=== PATIENT | female | born 1995 | race Caucasian/White ===

== ENCOUNTER 2016-12-25 19:16 | Emergency (ER) | payer OTHER ==
[2016-12-25 20:25] VITALS: BP 101/64
--- NOTE | 2016-12-25 21:39 | UC ---
FLU HPI - HPI Summary HPI Summary: AT 7AM BEGAN HAVING BODY ACHES, FEVER, CHILLS, CONGESTION. MOTHER SICK (AFTER GOING HOME FOR [facility]) NO RASHES. NO VOMITING OR DIARRHEA - History of Current Complaint Chief Complaint: UCRespiratory Stated Complaint: ACHES, SORE THROAT, AND COUGH Time Seen by Provider: 12/25/16 20:40 Hx Obtained From: Patient Hx Last Menstrual Period: 11/23/16 Onset/Duration: Sudden Onset, Lasting Hours, Still Present Severity Currently: Moderate Severity Initially: Moderate Associated Signs & Symptoms: Positive: Fever, F/C, Myalgia, Sore Throat, Nasal Congestion Related Hx: Possible Flu/Infectious Exposure - Risk Factors Influenza Risk Factors: Negative - Allergy/Home Medications Allergies/Adverse Reactions: Allergies Allergy/AdvReac Type Severity Reaction Status Date / Time No Known Allergies Allergy Verified 12/25/16 20:25 Home Medications: Home Medications Citalopram TAB* [Celexa TAB*] 12/25/16 [History] Gabapentin CAP(*) [Neurontin 300 CAP(*)] 12/25/16 [History Confirmed 12/25/16] PMH/Surg Hx/FS Hx/Imm Hx Previously Healthy: Yes Neurological History Of: Reports: Migraine - Surgical History Surgical History: Yes Surgery Procedure, Year, and Place: TONSILLECTOMY, jaw - Family History Known Family History: Positive: None - reviewed & noncontributory, Other - MOTHER SICK WITH SIMILAR SYMPTOMS Negative: Respiratory Disease - Social History Occupation: Student Lives: With Family Alcohol Use: Occasionally Substance Use Type: None Smoking Status (MU): Never Smoked Tobacco Review of Systems Constitutional: Fever, Chills Skin: Negative Eyes: Negative ENT: Sore Throat, Nasal Discharge Respiratory: Negative Cardiovascular: Negative Gastrointestinal: Negative Genitourinary: Negative Motor: Negative Neurovascular: Negative Musculoskeletal: Myalgia Neurological: Negative Psychological: Negative All Other Systems Reviewed And Are Negative: Yes Physical Exam Triage Information Reviewed: Yes Appearance: No Pain Distress, Well-Nourished, Ill-Appearing Vital Signs: Initial Vital Signs Temp 99.5 F 12/25/16 20:21 Pulse 71 12/25/16 20:21 Resp 12 12/25/16 20:21 BP 101/64 12/25/16 20:21 Pulse Ox 100 12/25/16 20:21 Vital Signs Reviewed: Yes Eye Exam: Normal Eyes: Positive: Conjunctiva Clear ENT: Positive: Normal ENT inspection, Hearing grossly normal, Pharynx normal, Nasal congestion, TMs normal. Negative: Pharyngeal erythema, Tonsillar swelling , Tonsillar exudate Dental Exam: Normal Neck exam: Normal Neck: Positive: Supple, Nontender, No Lymphadenopathy Respiratory Exam: Normal Respiratory: Positive: Chest non-tender, Lungs clear, Normal breath sounds, No respiratory distress, No accessory muscle use Cardiovascular Exam: Normal Cardiovascular: Positive: RRR, No Murmur, Pulses Normal Abdominal Exam: Normal Abdomen Description: Positive: Nontender, No Organomegaly. Negative: Splenomegaly Musculoskeletal Exam: Normal Musculoskeletal: Positive: Strength Intact, ROM Intact, No Edema Neurological Exam: Normal Psychological Exam: Normal Psychological: Positive: Normal Response To Family Skin Exam: Normal Flu Course/Dx - Differential Dx/Diagnosis Differential Diagnosis/HQI/PQRI: Influenza, RSV, Upper Respiratory Infection Provider Diagnoses: INFLUENZA Discharge - Discharge Plan Condition: Stable Disposition: HOME Prescriptions: Oseltamivir CAP* [Tamiflu CAP*] 75 mg PO BID #10 cap Patient Education Materials: Influenza (ED) Referrals: [facility] MING Murillo [Primary Care Provider] -
[2016-12-25] MEDS ORDERED: Oseltamivir CAP* 75 MG PO ONE (21:42)
== END 2016-12-25 21:52 | disposition home or self-care (01) ==
LOC: UCEAST 19:16
DX: J11.1 Influenza due to unidentified influenza virus with other respiratory manifestations (principal)
CPT/HCPCS: 87502; 99212; A9270-GY; G0463

== ENCOUNTER 2018-01-11 20:29 | Emergency (ER) | payer OTHER ==
[2018-01-11 21:25] VITALS: BP 89/60
--- NOTE | 2018-01-11 22:08 | UC ---
Head Injury HPI - HPI Summary HPI Summary: 22 yo WF presents s/p fall [address] and hit her head onto sidewalk w/o LOC, but its been 3 days and c/o mental fogginess, unsteadiness on her feet , MINOR, nausea. Reports pain is more severe than previous post-concussions HAs - History Of Current Complaint Chief Complaint: UCHeadInjury Stated Complaint: HEADACHES,NAUSEA FROM HEAD INJURY Time Seen by Provider: 01/11/18 21:50 Hx Obtained From: Patient Hx Last Menstrual Period: 12/04/17 Onset/Duration: Sudden Onset, Lasting Days Severity Currently: Moderate Severity Initially: Moderate Pain Intensity: 7 - Allergies/Home Medications Allergies/Adverse Reactions: Allergies Allergy/AdvReac Type Severity Reaction Status Date / Time No Known Allergies Allergy Verified 01/11/18 21:16 Home Medications: Home Medications Penicillin VK TAB* [Penicillin VK 250 mg Tab*] 250 mg PO QID 01/11/18 [History Confirmed 01/11/18] Sertraline* [Zoloft*] 50 mg PO DAILY 01/11/18 [History Confirmed 01/11/18] lamoTRIgine TAB(*) [Lamictal TAB(*)] 150 mg PO DAILY 01/11/18 [History Confirmed 01/11/18] tiaGABine TAB(*) [Gabitril(*)] 4 mg PO BEDTIME 01/11/18 [History Confirmed 01/11] tiaGABine TAB(*) [Gabitril(*)] 8 mg PO QAM 01/11/18 [History Confirmed 01/11/18] PMH/Surg Hx/FS Hx/Imm Hx - Additional Past Medical History Additional PMH: concussions - Surgical History Surgical History: Yes Surgery Procedure, Year, and Place: TONSILLECTOMY, jaw reconstruction 2016 - Family History Known Family History: Positive: None - reviewed & noncontributory, Other - MOTHER SICK WITH SIMILAR SYMPTOMS Negative: Respiratory Disease - Social History Alcohol Use: Weekly Substance Use Type: None Smoking Status (MU): Never Smoked Tobacco Review of Systems Constitutional: Negative Skin: Negative Eyes: Negative ENT: Negative Respiratory: Negative Cardiovascular: Negative Gastrointestinal: Negative Genitourinary: Negative Motor: Negative Neurovascular: Other - see HPI Musculoskeletal: Negative Neurological: Negative Psychological: Negative All Other Systems Reviewed And Are Negative: Yes Physical Exam Triage Information Reviewed: Yes Appearance: No Pain Distress Vital Signs: Initial Vital Signs Temp 37.1 C 01/11/18 21:19 Pulse 66 01/11/18 21:19 Resp 79 01/11/18 21:19 BP 89/60 01/11/18 21:19 Pulse Ox 100 01/11/18 21:19 Eye Exam: Normal ENT Exam: Normal Dental Exam: Normal Neck exam: Normal Neck: Positive: 1 Respiratory Exam: Normal Cardiovascular Exam: Normal Abdominal Exam: Normal Musculoskeletal Exam: Normal Neurological: Positive: Other: - CN 2-12 grossly intact, gait WNL, no hemiparesis or paresthesias Psychological Exam: Normal Skin Exam: Normal Skin: Positive: Other - right parietal scalp contusion 2x2cm, no open wounds Head Injury Course/Dx - Course Course Of Treatment: post-concussion MINOR, mental fogginess and nausea is worsening, will need CT brain to r/o cerebral edema or slow ICH to explain progressive worsening of sx. Advised to go to ER now for CT brain w/o contrast - Differential Dx/Diagnosis Differential Diagnosis/HQI/PQRI: Cerebral Contusion, Concussion Without LOC, Contusion Provider Diagnoses: post concussion syndrome Discharge - Discharge Plan Condition: Stable Disposition: HOME Patient Education Materials: Concussion (ED), Post Concussion Syndrome (ED) Referrals: [facility] Derik SCHOFIELD [Primary Care Provider] - Additional Instructions: Please go to ER for CT scan of head for persistent post-concussion syndrome and further evaluation
== END 2018-01-11 22:07 | disposition home or self-care (01) ==
LOC: UCEAST 20:29
DX: F07.81 Postconcussional syndrome (principal); G44.309 Post-traumatic headache, unspecified, not intractable
CPT/HCPCS: 99212; G0463

== ENCOUNTER 2018-01-11 22:20 | Emergency (ER) | payer OTHER ==
[2018-01-11] MEDS ORDERED: Meclizine TAB* 12.5 MG PO ONE (23:09)
--- NOTE | 2018-01-12 00:26 | ED ---
Head Injury - HPI Summary HPI Summary: 22-year-old female presents with head injury 3 days ago. She states she turned and fell on the backside of her head on the sidewalk. She states she has been feeling very dizzy and unsteady on her feet. She admits to nausea but denies any vomiting. She denies any loss consciousness. She states she has a severe headache. She states that Tylenol has not been working. She denies any change in vision. She admits to photophobia. Denies any neck pain. She admits to difficulties concentrating. She was seen in urgent care and sent here for CT. She has history of migraines. She has history of head injuries that have resulted in concussion which this concussion much worst than previous. - History Of Current Complaint Chief Complaint: EDHeadInjury Stated Complaint: HEAD INJURY Time Seen by Provider: 01/11/18 22:30 Hx Last Menstrual Period: 12/04/17 Pain Intensity: 7 - Allergies/Home Medications Allergies/Adverse Reactions: Allergies Allergy/AdvReac Type Severity Reaction Status Date / Time No Known Allergies Allergy Verified 01/11/18 21:16 PMH/Surg Hx/FS Hx/Imm Hx Endocrine/Hematology History: Denies: Hx Anticoagulant Therapy Cardiovascular History: Denies: Hx Hypertension Neurological History: Reports: Hx Migraine - Surgical History Surgery Procedure, Year, and Place: TONSILLECTOMY, jaw reconstruction 2016 Infectious Disease History: No Infectious Disease History: Denies: Traveled Outside the [place] in Last 30 Days - Family History Known Family History: Positive: None - reviewed & noncontributory, Other - MOTHER SICK WITH SIMILAR SYMPTOMS Negative: Respiratory Disease - Social History Alcohol Use: Weekly Hx Substance Use: No Substance Use Type: Reports: None Hx Tobacco Use: No Smoking Status (MU): Never Smoked Tobacco Review of Systems Negative: Fever Negative: Chest Pain Negative: Shortness Of Breath Positive: Nausea. Negative: Vomiting Neurological: Other - dizziness Positive: Headache All Other Systems Reviewed And Are Negative: Yes Physical Exam Triage Information Reviewed: Yes Vital Signs On Initial Exam: Initial Vitals Temp Pulse Resp BP Pulse Ox 97.5 F 87 20 107/68 100 01/11/18 22:21 01/11/18 22:21 01/11/18 22:21 01/11/18 22:21 01/11/18 22:21 Vital Signs Reviewed: Yes Appearance: Positive: Well-Appearing Skin: Positive: Warm, Dry Head/Face: Positive: Normal Head/Face Inspection Eyes: Positive: Normal, EOMI, CARLTON, Conjunctiva Clear ENT: Positive: Normal ENT inspection, Pharynx normal, TMs normal Respiratory/Lung Sounds: Positive: Clear to Auscultation, Breath Sounds Present Cardiovascular: Positive: Normal, RRR Abdomen Description: Positive: Nontender, Soft Bowel Sounds: Positive: Present Neurological: Positive: Sensory/Motor Intact, Alert, Oriented to Person Place, Time, CN Intact II-III, Finger to Nose - Pierre Coma Scale Best Eye Response: 4 - Spontaneous Best Motor Response: 6 - Obeys Commands Best Verbal Response: 5 - Oriented Coma Scale Total: 15 Diagnostics - Vital Signs Vital Signs Temp Pulse Resp BP Pulse Ox 01/11/18 22:21 97.5 F 87 20 107/68 100 - Laboratory Lab Statement: Any lab studies that have been ordered have been reviewed, and results considered in the medical decision making process. - CT brain CT Interpretation: Positive (See Comments) - No hemorrhage, no mass small low- density foci could represent lunar infarct of indeterminate age no shift or herniation CT Interpretation Completed By: Radiologist Head Injury Course/Dx Course Of Treatment: 22-year-old female presents with head injury 3 days ago. She states she turned and fell on the backside of her head on the sidewalk. She states she has been feeling very dizzy and unsteady on her feet. She admits to nausea but denies any vomiting. She denies any loss consciousness. She states she has a severe headache. She states that Tylenol has not been working. She denies any change in vision. She admits to photophobia. Denies any neck pain. She admits to difficulties concentrating. She was seen in urgent care and sent here for CT. no neuro deficit on exam. We will get CT due to severe headache. CT shows no hemorrhage or mass. Does show potentially infarct of unknown time. Since no neuro deficit at this time unlikely to be acute. We'll have follow-up with neurology. Will have follow up with kinsey in the next 2 days. The patient understands and agrees with plan. - Diagnoses Differential Diagnosis/HQI/PQRI: Concussion Without LOC, Contusion, Intracranial Bleed Provider Diagnoses: Head injury Discharge - Discharge Plan Condition: Good Disposition: HOME Prescriptions: Meclizine TAB* [Antivert 12.5 TAB*] 12.5 mg PO QID PRN #20 tab PRN Reason: Vertigo Patient Education Materials: Head Injury (ED) [facility] - Elio Hatfield MD [Medical Doctor] - Additional Instructions: Place ice on area as needed Take Tylenol or ibuprofen for headache every 6 hours Take meclizine up to four tablets a day for dizziness Modify activities as tolerated Follow up with kinsey within 5 days A referral was provided for neurology Return to ED if develop any new or worsening symptoms
[2018-01-12] MEDS ORDERED: Ketorolac INJ* 60 MG/2 ML VIAL IM ONE (00:33)
[2018-01-12 00:58] VITALS: BP 98/67
--- NOTE | 2018-01-12 07:54 | RAD ---
HISTORY: Head injury COMPARISONS: January 13, 2016 TECHNIQUE: Multiple contiguous axial CT scans were obtained of the head without intravenous contrast. Coronal and sagittal multiplanar reformations are also submitted for review.'S FINDINGS: HEMORRHAGE/INFARCT: There is no hemorrhage or acute infarct. MASSES/SHIFT: There is no mass or shift. EXTRA-AXIAL SPACES: There are no extra-axial fluid collections. SULCI AND VENTRICLES: The sulci and ventricles are normal in size and position for the patient's stated age. CEREBRUM: There are no focal parenchymal abnormalities. BRAINSTEM: There is a small focus of hyperattenuation noted within the left diony on axial image 7 measuring 0.4 cm in size. CEREBELLUM: There are no focal parenchymal abnormalities. VESSELS: The vessels are grossly normal. PARANASAL SINUSES: The paranasal sinuses are clear. ORBITS: The orbits are unremarkable. BONES AND SOFT TISSUE: No bone or soft tissue abnormalities are noted. OTHER: Again it is prominence of the adenoidal soft tissue in the midline. This is stable from January 13, 2016. IMPRESSION: SMALL FOCUS OF HYPERATTENUATION WITHIN THE LEFT DIONY. IN THE CORRECT CLINICAL SETTING, THIS COULD INDICATE A SMALL LACUNAR INFARCT OF INDETERMINATE AGE. RECOMMEND CONSIDERATION OF CORRELATION WITH MR IMAGING
== END 2018-01-12 00:57 | disposition home or self-care (01) ==
LOC: ED 22:20
DX: S09.90XA Unspecified injury of head, initial encounter (principal); W19.XXXA Unspecified fall, initial encounter; Y92.9 Unspecified place or not applicable; R42 Dizziness and giddiness
CPT/HCPCS: 70450; 96372; 99282; A9270-GY; J1885

== ENCOUNTER 2018-10-20 14:18 | Emergency (ER) | payer OTHER ==
--- NOTE | 2018-10-20 14:33 | ED ---
Psychiatric Complaint - HPI Summary HPI Summary: The pt is a 22 y/o female presenting to [facility] c/o SI with a plan since last week. She notes depression. She is a student. PMHx: Bipolar. Home Medications Medication Instructions Recorded Confirmed Type Meclizine TAB* [Antivert 12.5 TAB*] 12.5 mg PO QID PRN #20 tab 01/12/18 Rx Gabapentin CAP(*) [Neurontin 100 100 mg PO DAILY 10/20/18 10/20/18 History mg CAP(*)] Sertraline* [Zoloft*] 25 mg PO DAILY 10/20/18 10/20/18 History lamoTRIgine TAB(*) [LaMICtal 25 mg PO BEDTIME 10/20/18 10/20/18 History TAB(*)] - History Of Current Complaint Time Seen by Provider: 10/20/18 14:28 Hx Obtained From: Patient Hx Last Menstrual Period: 12/04/17 Onset/Duration: Lasting Weeks - 1 week, Still Present Character: Depressed Aggravating Factor(s): Nothing Alleviating Factor(s): Nothing Related History: Positive For: Prior Psychiatric Issues Has Suicidal: Reports: Thoughts, With A Plan Has Homicidal: Denies: Thoughts, With A Plan - Allergies/Home Medications Allergies/Adverse Reactions: Allergies Allergy/AdvReac Type Severity Reaction Status Date / Time No Known Allergies Allergy Verified 10/20/18 15:54 Home Medications: Home Medications Gabapentin CAP(*) [Neurontin 100 mg CAP(*)] 100 mg PO DAILY 10/20/18 [History Confirmed 10/20/18] Sertraline* [Zoloft*] 25 mg PO DAILY 10/20/18 [History Confirmed 10/20/18] lamoTRIgine TAB(*) [LaMICtal TAB(*)] 25 mg PO BEDTIME 10/20/18 [History Confirmed 10/20/18] PMH/Surg Hx/FS Hx/Imm Hx Previously Healthy: No Endocrine/Hematology History: Denies: Hx Anticoagulant Therapy, Hx Diabetes Cardiovascular History: Denies: Hx Hypertension, Hx Pacemaker/ICD Respiratory History: Denies: Hx Asthma History: Denies: Hx Renal Disease Sensory History: Denies: Hx Hearing Aid Neurological History: Reports: Hx Migraine Psychiatric History: Denies: Hx Panic Disorder - Cancer History Cancer Type, Location and Year: None reported - Surgical History Surgery Procedure, Year, and Place: TONSILLECTOMY; JAW RECONSTRUCTION 2016; WISDOM TEETH Infectious Disease History: No Infectious Disease History: Denies: Hx Clostridium Difficile, Hx Hepatitis, Hx Human Immunodeficiency Virus (HIV), Hx of Known/Suspected MRSA, Hx Shingles, Hx Tuberculosis, Hx Known/ Suspected VRE, Hx Known/Suspected VRSA, History Other Infectious Disease, Traveled Outside the in Last 30 Days - Family History Known Family History: Negative: Respiratory Disease - Social History Occupation: Student Lives: With Family Alcohol Use: Weekly Hx Substance Use: No Substance Use Type: Reports: None Hx Tobacco Use: No Smoking Status (MU): Never Smoked Tobacco Review of Systems Positive: no symptoms reported Psychological: Other - Positive: SI with a plan Positive: Depressed All Other Systems Reviewed And Are Negative: Yes Physical Exam - Summary Physical Exam Summary: Appearance: Well appearing, no pain distress Skin: warm, dry, reflects adequate perfusion Head/face: normal Eyes: EOMI, CARLTON ENT: normal Neck: supple, non-tender Respiratory: CTA, breath sounds present Cardiovascular: RRR, pulses symmetrical Abdomen: non-tender, soft Musculoskeletal: normal, strength/ROM intact Neuro: normal, sensory motor intact, A&Ox3 Psych: Depressed affect Triage Information Reviewed: Yes Vital Signs On Initial Exam: Initial Vital Signs Temp 97.9 F 10/20/18 15:51 Pulse 83 10/20/18 15:51 Resp 16 10/20/18 15:51 BP 113/79 10/20/18 15:51 Pulse Ox 97 10/20/18 15:51 Vital Signs Reviewed: Yes Diagnostics - Laboratory Result Diagrams: 10/20/18 14:49 10/20/18 14:49 Lab Statement: Any lab studies that have been ordered have been reviewed, and results considered in the medical decision making process. Re-Evaluation - Re-Evaluation First Eval Re-Evaluation Time: 15:54 Change: Unchanged - Pt medically cleared for a MHE Second Eval Re-Evaluation Time: 17:55 Change: Improved Comment: The patient's mother agreed to come an pick the patient, take time off from work and take care of the pt. She is driving [place], [place]. They plan to search for a counselor at [facility] for the patient to see regularly in spring 2019 semester. Course/Dx - Course Course Of Treatment: A 22 year-old F presents to the ED with a CC of SI with a plan since last week. She notes depression. A physical exam revealed depressed affect. The pt is medically cleared for a MHE. In the ED course, pt was given Ibuprofen 600 mg PO which improved the symptoms.Patient will be discharged with a final Dx of depression and SI. Pt is agreeable with this plan. Allergies noted. - Differential Dx/Clinical Impression Differential Diagnosis/HQI/PQRI: Positive: Anxiety, Depression Provider Diagnosis: Depression, Suicidal ideations Discharge - Sign-Out/Discharge Documenting (check all that apply): Patient Departure - DC - Discharge Plan Condition: Stable Disposition: HOME [facility] - - Billing Disposition and Condition Condition: STABLE Disposition: Home - Attestation Statements Document Initiated by Marckibe: Yes Documenting Scribe: Pooja Can Provider For Whom Marckibe is Documenting (Include Credential): Dr. Pavan Beckford MD Scribe Attestation: Pooja Schmidt scribed for Dr. Pavan Beckford MD on 10/20/18 at 1843. Scribe Documentation Reviewed: Yes Provider Attestation: The documentation as recorded by the Pooja calderon accurately reflects the service I personally performed and the decisions made by , Dr. Pavan Beckford MD Status of Scribe Document: Viewed
[2018-10-20 15:00] LABS: ABS Basophils 0 10^3/ul (0-0.2); ABS Eosinophils 0.1 10^3/ul (0-0.6); ABS Lymphocytes 1.6 10^3/ul (1.0-4.8); ABS Monocytes 0.5 10^3/ul (0-0.8); ABS Neutrophils 5.6 10^3/ul (1.5-7.7); ABS Nucleated RBC 0 10^3/ul; Hematocrit 41 % (35-47); Hemoglobin 13.8 g/dl (12.0-16.0); Lymphocyte % 20.5 %; Mean Corpuscular HGB Conc 34 g/dl (31-36); Mean Corpuscular Hemoglobin 31 pg (27-31); Mean Corpuscular Volume 91 fL (80-97); Mean Platelet Volume 9.3 fL (7.4-10.4); Nucleated Red Blood Cells % 0.1; Platelet Count 228 10^3/ul (150-450); Red Blood Count 4.52 10^6/ul (4.00-5.40); Red Cell Distribution Width 14 % (10.5-15); White Blood Count 7.7 10^3/ul (3.5-10.8)
[2018-10-20 15:29] LABS: ALT 15 U/L (7-52); AST 19 U/L (13-39); Albumin 4.6 g/dL (3.2-5.2); Albumin/Globulin Ratio 1.5 (1-3); Alkaline Phosphatase 59 U/L (34-104); Anion Gap 8 mmol/L (2-11); BUN/Creatinine Ratio 19.7 (8-20); Blood Urea Nitrogen 13 mg/dL (6-24); CO2 Carbon Dioxide 23 mmol/L (22-32); Calcium 9.2 mg/dL (8.6-10.3); Chloride 109 mmol/L (101-111); Globulin 3.1 g/dL (2-4); Glucose 95 mg/dL (70-100); Potassium 4.1 mmol/L (3.5-5.0); Sodium 140 mmol/L (135-145); Total Protein 7.7 g/dL (6.4-8.9)
[2018-10-20 15:30] LABS: Barbiturates Urine Screen None Detected (None Detect); Benzodiazepine Urine Screen None Detected (None Detect); Urine Cannabinoids Screen Presumptive Positive (None Detect)
[2018-10-20 15:34] LABS: HCG Pregnancy < 0.60 mIU/mL
[2018-10-20] MEDS ORDERED: Ibuprofen TAB* 600 MG PO ONE (16:00)
[2018-10-20 16:06] LABS: Acetaminophen < 15 mcg/mL; Alcohol < 10 mg/dL (<10); Salicylate < 2.50 mg/dL (<30)
[2018-10-20 18:52] VITALS: BP 113/73
== END 2018-10-20 20:04 | disposition home or self-care (01) ==
LOC: ED 14:18
DX: F32.9 Major depressive disorder, single episode, unspecified (principal)
CPT/HCPCS: 36415; 80053; 80307; 80320; 80329; 84443; 84702; 85025; 99285; A9270-GY; G0480

== ENCOUNTER 2020-01-11 17:26 | Emergency (ER) | payer BC, OTHER ==
[2020-01-11 17:40] VITALS: BP 102/67
--- NOTE | 2020-01-11 20:22 | UC ---
Respiratory Complaint HPI - HPI Summary HPI Summary: 24-year-old woman comes in with a chief complaint of rhinorrhea sinus pressure postnasal drip cough chest congestion shortness of breath. In November 2019 she was treated for bronchitis with bronchospasm with steroids and albuterol inhaler and never really improved. Last couple of days she's been having more rhinorrhea that's yellow in color with postnasal drip. She does feel sinus pressure. No history of asthma. When she exercises makes his shortness breath worse. - History of Current Complaint Chief Complaint: UCRespiratory Stated Complaint: COUGH Time Seen by Provider: 01/11/20 19:24 Hx Last Menstrual Period: 11/2018 Pain Intensity: 2 - Allergies/Home Medications Allergies/Adverse Reactions: Allergies Allergy/AdvReac Type Severity Reaction Status Date / Time No Known Allergies Allergy Verified 01/11/20 17:40 Home Medications: Home Medications Gabapentin CAP(*) [Neurontin 100 mg CAP(*)] 100 mg PO DAILY 10/20/18 [History Confirmed 01/11/20] DOXYcycline CAP(*) [DOXYcycline 100MG CAP(*)] 100 mg PO BID #19 cap 01/11/20 [Rx ] Dexmethylphenidate HCl [Focalin Xr] 15 mg PO DAILY 01/11/20 [History Confirmed 01/11/20] Fluticasone NASAL SPRAY 50MCG* [Flonase NASAL SPRAY 50MCG*] 2 spray BOTH NARES DAILY #1 btl 01/11/20 [Rx] predniSONE 20 mg TAB [Deltasone 20 MG TAB*] 40 mg PO DAILY #8 tab 01/11/20 [Rx] PMH/Surg Hx/FS Hx/Imm Hx Previously Healthy: Yes Other History Of: Negative For: Anticoagulant Therapy - Surgical History Surgical History: Yes Surgery Procedure, Year, and Place: TONSILLECTOMY; JAW RECONSTRUCTION 2016; WISDOM TEETH - Family History Known Family History: Positive: None - reviewed & noncontributory, Other - MOTHER SICK WITH SIMILAR SYMPTOMS Negative: Respiratory Disease - Social History Alcohol Use: Weekly Substance Use Type: None Smoking Status (MU): Smoker, Current Status Unknown Review of Systems All Other Systems Reviewed And Are Negative: Yes Constitutional: Positive: Other - SEE HPI Skin: Positive: Negative Eyes: Positive: Negative ENT: Positive: Nasal Discharge, Sinus Congestion, Sinus Pain/Tenderness Respiratory: Positive: Shortness Of Breath, Cough, Other - SEE HPI Cardiovascular: Positive: Negative Gastrointestinal: Positive: Negative Motor: Positive: Negative Neurovascular: Positive: Negative Musculoskeletal: Positive: Negative Neurological/Mental Status: Positive: Negative Psychological: Positive: Negative Is Patient Immunocompromised?: No Physical Exam Triage Information Reviewed: Yes Appearance: Well-Appearing, No Pain Distress, Well-Nourished Vital Signs: Initial Vital Signs Temp 98.5 F 01/11/20 17:35 Pulse 61 01/11/20 17:35 Resp 16 01/11/20 17:35 BP 102/67 01/11/20 17:35 Pulse Ox 100 01/11/20 17:35 Vital Signs Reviewed: Yes Eye Exam: Normal Eyes: Positive: Conjunctiva Clear ENT: Positive: Pharynx normal, Nasal congestion, TMs normal Neck: Positive: Supple Respiratory: Positive: Lungs clear, Normal breath sounds, No respiratory distress Cardiovascular: Positive: RRR Musculoskeletal: Positive: Strength Intact, ROM Intact Neurological: Positive: Alert, Muscle Tone Normal Psychological: Positive: Age Appropriate Behavior Skin Exam: Normal Respiratory Course/Dx - Course Course Of Treatment: With the symptoms going on for so long we'll treat with doxycycline for both sinusitis and bronchitis. I discussed the chest x-ray with the patient I do not see any infiltrate radiologist reading is pending. Also treated with albuterol and prednisone and Flonase. Patient has albuterol already. And a follow-up with her primary care doctor get reevaluated sooner if worse requests concerns. - Differential Dx/Diagnosis Provider Diagnosis: Sinusitis, Bronchitis with bronchospasm Discharge ED - Sign-Out/Discharge Documenting (check all that apply): Patient Departure All imaging exams completed and their final reports reviewed: No - Discharge Plan Condition: Stable Disposition: HOME Prescriptions: DOXYcycline CAP(*) [DOXYcycline 100MG CAP(*)] 100 mg PO BID #19 cap Fluticasone NASAL SPRAY 50MCG* [Flonase NASAL SPRAY 50MCG*] 2 spray BOTH NARES DAILY #1 btl predniSONE 20 mg TAB [Deltasone 20 MG TAB*] 40 mg PO DAILY #8 tab Patient Education Materials: Sinusitis (ED), Acute Bronchitis (ED), Bronchospasm (ED) Forms: *Work Release Referrals: [facility] [Outside] [facility] [Outside] Additional Instructions: FOLLOW UP WITH YOUR DOCTOR IF NOT COMPLETELY IMPROVED. GET REEVALUATED SOONER IF NOT IMPROVED OR WORSE OR ANY QUESTIONS OR CONCERNS. - Billing Disposition and Condition Condition: STABLE Disposition: Home
[2020-01-11] MEDS ORDERED: DOXYcycline CAP(*) 100 MG PO ONE (20:27)
--- NOTE | 2020-01-12 12:40 | UC ---
- Progress Note Progress Note: no change in initial management - EKG/XRAY/CT XRAY: chest - no pneumonia elevated lung volumes Course/Dx - Diagnoses Provider Diagnoses: Sinusitis, Bronchitis with bronchospasm Discharge ED - Sign-Out/Discharge Documenting (check all that apply): Post-Discharge Follow Up All imaging exams completed and their final reports reviewed: Yes - Discharge Plan Condition: Stable Disposition: HOME Prescriptions: DOXYcycline CAP(*) [DOXYcycline 100MG CAP(*)] 100 mg PO BID #19 cap Fluticasone NASAL SPRAY 50MCG* [Flonase NASAL SPRAY 50MCG*] 2 spray BOTH NARES DAILY #1 btl predniSONE 20 mg TAB [Deltasone 20 MG TAB*] 40 mg PO DAILY #8 tab Patient Education Materials: Sinusitis (ED), Acute Bronchitis (ED), Bronchospasm (ED) Forms: *Work Release Referrals: [facility] [Outside] [facility] [place] [facility] [Outside] Additional Instructions: FOLLOW UP WITH YOUR DOCTOR IF NOT COMPLETELY IMPROVED. GET REEVALUATED SOONER IF NOT IMPROVED OR WORSE OR ANY QUESTIONS OR CONCERNS. - Billing Disposition and Condition Condition: STABLE Disposition: Home
== END 2020-01-11 21:00 | disposition home or self-care (01) ==
LOC: UCEAST 17:26
DX: J32.9 Chronic sinusitis, unspecified (principal); J40 Bronchitis, not specified as acute or chronic; J98.01 Acute bronchospasm; F17.200 Nicotine dependence, unspecified, uncomplicated
CPT/HCPCS: 71046; 99212; A9270-GY; G0463; J7512